=== PATIENT | male | born 1955 | race Caucasian/White ===

== ENCOUNTER 2021-01-05 06:14 | Observation (INO) | payer OTHER, MEDICARE ==
[~2021-01-05] VITALS: Ht 188 cm; Wt 88.0 kg
[~2021-01-05 06:14] MED LIST: ALPRAZOLAM 0.0.25 M1 PO; CELECOXIB200 MG PO; TESTOSTERO200 MG/1 M IM; XANAX XR2 MG PO; ZOLPIDEM TART12.5 MG PO
--- NOTE | 2021-01-05 07:26 | EKG ---
[address] [address] ELECTROCARDIOGRAM REPORT Name: NNEKA SHAW Room #: 150-2 [facility]#: [id number] Admission: 01/05/21 Attend Phys: Will Fonseca MD Discharge: Date of : 55 Report #: [id number] [facility] Test Date: 2021-01-05 Test Time: 06:42:00 Pat Name: NNEKA SHAW Department: Room: 150 2 Gender: M [employer] Collection Clerk: VIKTORIA : 1955 Requested By: Will Fonseca Order Number: [id number] : Jay Hawthorne Measurements Intervals [place] Rate: 67 P: 53 TN: 158 QRS: 54 QRSD: 103 T: 57 QT: 385 QTc: 407 Interpretive Statements Sinus rhythm No previous ECG available for comparison Electronically Signed On 01-05-2021 7:26:16 CDT by Jay Hawthorne [email or web address] <ELECTRONICALLY SIGNED> By: Jay Hawthorne MD, [facility] 01/05/21 0726 [id number] Jay Hawthorne MD, FACC /EPI
[2021-01-05 07:39] VITALS: BP 139/82
[2021-01-05 14:06] VITALS: BP 158/107
--- NOTE | 2021-01-05 15:12 | NUR ---
ASSUMED PT CARE AT 1330 FROM PACU. PT HAD SURGERY TODAY. PT IS ALERT & ORIENTED X4. PT HAS IV SITES ON L FA AND L HAND 20 GAUGE. PT IS ON ROOM AIR. PT C/O OF PAIN AND GIVEN PAIN MEDICATION PER PT REQUEST. PT TOLERATED CLEAR LIQUID DIET AND ADVANCE DIET FOR DINNER. PT HAS POLAR CARE AND DRESSING ON L HIP. FINISHED ADMISSION. PT ON THE BED, BED ON THE LOWEST POSITION, SIDE RAILSA UP, CALL LIGHT WITHIN REACH. WILL CONTINUE TO MONITOR PT. FOLLOW POC.
[2021-01-05 19:03] VITALS: BP 137/76
[2021-01-05 20:00] VITALS: BP 135/67
[2021-01-06 04:59] VITALS: BP 102/62
[2021-01-06 07:17] VITALS: BP 126/78
--- NOTE | 2021-01-06 09:28 | O ---
[address] [address] OPERATIVE REPORT Name: NNEKA SHAW Room #: 444-P [facility]..#: [id number] Admission: 01/05/21 Attend Phys: Will Fonseca MD Discharge: Date of : 55 Report #: [id number] THIS REPORT FOR: cc: Physician not on staff Physician not on staff Will Fonseca MD ~ DOC #: [id number] Will Fnoseca MD DATE OF SERVICE: 01/05/2021 SERVICE: Orthopedics. FACILITY: [facility]. SURGEON: Will Fonseca MD EARLY HEAD START DIRECTOR: Sandra Lopez NP INDICATIONS FOR EARLY HEAD START DIRECTOR: Extremity positioning, suture management, arthroscope management assistance with repair. PREOPERATIVE DIAGNOSES: 1. Right hip pain. 2. Right hip femoral acetabular impingement. 3. Right hip labral tear. POSTOPERATIVE DIAGNOSES: 1. Right hip pain. 2. Right hip femoral acetabular impingement. 3. Right hip labral tear. 4. Additional right hip synovitis. 5. Additional right hip limited chondromalacia. PROCEDURE PERFORMED: 1. Right hip arthroscopic labral repair. 2. Right hip arthroscopic Cam osteochondroplasty. 3. Right hip arthroscopic subspine decompression. 4. Right hip arthroscopic limited acetabular rim chondroplasty. COMPLICATIONS: None. DRAINS: None. SPECIMENS: None. ANESTHESIA: General with regional. [address] [address] OPERATIVE REPORT Name: NNEKA SHAW Room #: 444-P [facility]#: [id number] Admission: 01/05/21 Attend Phys: Will Fonseca MD Discharge: Date of : 55 Report #: [id number] FINDINGS: 1. Detached anterior labral tear treated with Sadaf CinchLock suture anchor x3. 2. Focal area of chondral detachment, measuring approximately 5 x 2 mm at the anteromedial acetabular edge, treated with chondroplasty to a stable parameter. 3. Large Cam deformity, maximal alpha angle approximately 70 degrees, treated with Cam osteoplasty. 4. Prominent anterior inferior iliac spine at the level of the labral tear, causing extraarticular subspine impingement, requiring additional capsular dissection and bony resection. 5. Capsular repair with #2 Vicryl x4. HISTORY: The patient is a 65-year-old gentleman with a history of persistent and progressive right hip pain that was becoming quite significant. He was having severe impact on his activities of daily living, including his physical fitness health and at times simple ADLs as well. He had giveway symptoms. He had pain with hip flexion and decreased internal rotation as a result. He had positive impingement sign on physical examination. His x-rays were consistent with combined-type femoral acetabular impingement. Tonnis grade is 0, indicating no joint space narrowing. His cartilage appeared healthy on the MRI. Alpha angle was 65 degrees measured on preoperative imaging, which confirmed to be approximately 70 degrees on x-rays today intraoperatively and there is a small crossover sign secondary to a prominent anterior inferior iliac spine, causing extraarticular hip impingement. There was a labral tear on the MRI as well. He had temporary pain relief with an intra-articular corticosteroid injection, but this wore off. He pursued physical therapy, rest, activity modifications, oral medicines, the injection as stated as well as modalities, but nothing provided insufficient relief and ultimately, he wished to move forward with definitive surgical treatment. He had multiple consultations and we had a lengthy discussion on several occasions preoperatively discussing hip arthroscopy in his age group, recognizing that most patients in their mid 60s with hip pain undergo hip arthroplasty. However, his imaging was consistent that the intact articular cartilage was intact and together we felt that this was not the most appropriate solution as a result. Risks, benefits, alternatives and indications of surgery were discussed. Risks include but not limited to pain, bleeding, infection, injuring nerves or blood vessels, persistent pain despite surgical intervention, failure of any repairs, progression of preexisting chondral injury, stiffness, need for further surgery as well as complications related to anesthesia. Despite the risks, he wished to proceed. PROCEDURE IN DETAIL: After right lower extremity was correctly identified in the preoperative holding area, the operative extremity, the patient underwent regional nerve block. He was then taken to the operating room where [address] [address] OPERATIVE REPORT Name: COLINNNEKA Catrachito Room #: 444-P [facility] M.RUrbano#: [id number] Admission: 01/05/21 Attend Phys: Will Fonseca MD Discharge: Date of : 55 Report #: [id number] anesthesia was induced without complications. Padded appropriately. Prophylactic antibiotics were administered in appropriate time. The right lower extremity femoral head and neck junction was evaluated under fluoroscopy to identify the extent of the Cam deformity. The right hip was then prepped and draped in standard sterile fashion. Timeout procedure performed. Traction was applied. Standard anterolateral viewing portal was established followed by anteromedial working portal. Diagnostic arthroscopy was performed. Fluoroscopy was used for localization. There was synovitis present as well as capsular erythema and then synovitis in the pulvinar region. These will be the indications for continuous passive motion machine used postoperatively in order to reduce the risk of scarring and adhesions that these can be reasons for reoperation in this patient population. Transverse capsulotomy was performed and a synovectomy was performed at this point with a shaver. The capsule was reflected off the dorsal side of the labrum. There was clear chondral labral junction disruption and there was a focal area of full thickness labral tearing more medially. As the capsule exposure was completed, the prominent anterior inferior iliac spine was palpated and noted and this was directly adjacent to the labral pathology and this was therefore contributing to the impingement. His labrum had flattened on its more capsular side and had a longitudinal dimple appearance where the subspine impingement was occurring and there was some labral contusion here. After the capsule was dissected and the subspine was exposed using the cautery and the shaver, the bur was used to perform a subspine decompression in standard fashion, recessing the anterior inferior iliac spine to eliminate the extraarticular impingement. The bur was then used to gently abrade the acetabular rim and there was need for a focal rim acetabuloplasty in the anterior medial position, which was performed at this time. There was no direct anterior or lateral over coverage. After the bony work was completed on the acetabular side, the labral repair was performed. A total of three Sadaf CinchLock suture anchors were used with cerclage sutures with tape, providing good compression of the labrum against the acetabular rim. Scope was then placed anteriorly. The working portal was made laterally and completed the intraarticular debridement and then used the probe to assess the stability of the chondral labral junction in the labrum and it was confirmed to be stable. Note that prior to changing the portal, the chondroplasty was performed in the far medial aspect of the hip. This was in the location of the rim over coverage anteromedially as well as the full thickness labral tear and a portion of the cartilage had detached at this rim edge and this was resected with a biter and then stabilized with a shaver and a cautery and again was small in terms of overall surface area. There was some superficial chondromalacia at the chondral labral junction along the length of the labral tear and this was debrided with chondroplasty, but none of this was even on the order of 50% thickness loss and was probably in the 10% range. [facility] [address] [place] [address] OPERATIVE REPORT Name: BLANKDAYANNNEKA Room #: 444-P [facility] M..#: [id number] Admission: 01/05/21 Attend Phys: Will Fonseca MD Discharge: Date of : 55 Report #: [id number] After this was completed, traction was let down, hip was flexed up, attention was turned towards the peripheral compartment. Transverse capsulotomy was extended down the neck in a T fashion to allow access to the entire peripheral compartment and then the bur was used to perform a Cam osteochondroplasty in standard fashion. I removed the instruments, brought C-arm in to assess the resection, identified some additional bone over the lateral corner of the knee to be resected, placed the instruments back in the hip, continued with the Cam osteoplasty and then repeated this step. The x-ray indicated some additional bone medially and proximally to resect and so we placed the instruments back in the hip, completed the Cam osteoplasty and then removed the instruments, brought C-arm in and assessed again. I was happy with the appearance of the Cam osteoplasty at this point. I took final x-rays, placed instruments back into the hip and lavaged the bony debris out of the hip. The patient's bone quality was quite good and the Cam was remarkably dense given the patient's age, but not unexpected given his overall health and activity level. After the osteoplasty was completed, the T-shaped capsulotomy was closed with a total of four #2 Vicryl sutures. Instruments were removed. Portal sites were closed. Sterile dressing was applied. The patient was awakened from anesthesia and taken to recovery room in stable condition. No complications. All counts were correct. Will Fonseca MD MPM/CAMACHO <ELECTRONICALLY SIGNED> By: Will Fonseca MD 01/06/21 0928 [id number] Will Fonseca MD /nt
--- NOTE | 2021-01-06 10:58 | NUR ---
ASSESSED PT AT 700 AM PT A X O X 4. NO C/O NAUSEA NOTED. PAIN LEVEL WAS A LEVEL 3. AT 9:40 PT ASKED FOR PAIN MEDICATION FOR LEVEL 5 PAIN. HE WAS WILLING TO TAKE A ORAL PAIN MED. IV IN LEFT FOREARM AND LEFT HAND NO FLUIDS RUNNING. HIP WOUND DRESSING IS C/D/I. NO REDNESS OR SELLING NOTED. PT IS CONTINENT OF BLADDER. HYPOACTIVE BOWEL SOUNDS NOTED. PT. UP WITH PT WALKING IN HOPE PAIN LEVEL MINIMIZED. FALL PRECAUTIONS IN PLACE. CALL LIGHT WITHIN REACH. WILL CONTINUE TO MONITOR UNTIL DISCHARGE TODAY.
[2021-01-06 11:32] VITALS: BP 126/78
--- NOTE | 2021-01-06 13:51 | NUR ---
ASSESSMENT: CM REVIEWED CHART AND MET WITH PATIENT AT THE BEDSIDE. PT IS S/P ARTHROSCOPY TO HIP. PT REPORTS LIVING IN A HOUSE WITH HIS . PT REPORTS THAT HE HAS 2 STEPS WITH HANDRAIL TO ENTER. PT REPORTS NO STEPS HE HAS TO USE ONCE INSIDE. PT REPORTS HE HAS CRUTCHES THAT HE PLANS ON USING. PT REPORTS NO HX OF HH OR SNF. PT HAS OUTPATIENT THERAPY ARRANGED WITH [facility] FOR MONDAY. CM DISCUSSED ROLE. PT HAS NO NEEDS FROM CM. PT DISCHARGING HOME TODAY.
== END 2021-01-06 12:07 | disposition home or self-care (01) ==
LOC: OR 06:14 → TBA 06:14 → 4S 13:10 → OR 13:11 → 4S 13:11 → OR 13:14 → 4S 01-06 12:07
PROVIDERS: ADMIT Orthopaedic Surgery Sports Medicine; ATTEND Orthopaedic Surgery Sports Medicine
DX: M25.851 Other specified joint disorders, right hip (principal); M65.851 Other synovitis and tenosynovitis, right thigh; S73.191A Other sprain of right hip, initial encounter; M94.251 Chondromalacia, right hip; Z79.899 Other long term (current) drug therapy; X58.XXXA Exposure to other specified factors, initial encounter; Y93.89 Activity, other specified; Y92.89 Other specified places as the place of occurrence of the external cause
CPT/HCPCS: 50010; 50101; 50386; 51320; 51538; 52001; 52282; 52304; 52313; 56524; 56527; 57092; 57103; 58273; 58274; 58558; 58559; 58560; 58561; 58562; 58563; 58564; 58608; 58634; 62110; 62900; 64043; 65060; 70005